=== PATIENT | female | born 1935 | race Caucasian/White ===

== ENCOUNTER 2017-11-05 19:14 | Emergency (ER) | payer MEDICARE, OTHER ==
--- NOTE | 2017-11-05 19:35 | EDM.PDOC ---
ED HPI GENERAL MEDICAL PROBLEM - General Chief Complaint: General Stated Complaint: nausea, vomiting, pain and burning with urination Time Seen by Provider: 11/05/17 19:25 Source of Information: Reports: Patient, Old Records ([facility] chart/EMR) History Limitations: Reports: No Limitations - History of Present Illness INITIAL COMMENTS - FREE TEXT/NARRATIVE: Patient drove herself to the emergency room via private automobile for evaluation of progressive intermittent 7/10 nonspecific generalized abdominal pain and bloating associated with mild diarrhea, nausea, and recurrent emesis with symptoms starting at about 13:00 hours on 11/03. She has measured her temperature with no history of fever or recent use of antipyretic medications or the patient is not taking any medications for her symptoms to this point. She did have 3 loose stools today with 3 episodes of emesis this morning. She denies any known exposure to infection, food poisoning, etc. The patient has been since some increased urinary frequency and dysuria since early this morning with no gross hematuria, colic, etc.. No recent history of heartburn, melena, gross hematochezia, or any food intolerance, including fatty foods, etc. , although she has had some moderate anorexia during the last 24 hours. Symptoms have progressed since about exceeding 1600 hours today. The patient denies any chest pain/pressure, heart flutter, dizziness, orthostasis, orthopnea , diaphoresis, paresthesias, recent decreased exercise tolerance, or any other anginal-type symptoms. The patient also denies any recent cough, wheezing, dyspnea, etc.. She has received an influenza booster this season. She shouldn't did not take most of her medications this morning, however she did take her blood pressure medication this morning, which was apparently increased yesterday secondary to recently elevated blood pressures. No history of recent headaches, visual changes, diplopia, change in mental status, or other change in neurological status. Onset: Gradual Onset Date: 11/03/17 Onset Time: 13:00 Duration: Getting Worse, Intermittent Location: Reports: Abdomen, Generalized. Denies: Head, Face, Neck, Chest, Back , Upper Extremity, Left, Upper Extremity, Right, Radiates to Quality: Reports: Other (As above) Severity: Moderate Improves with: Reports: None Worsens with: Reports: None Context: Reports: Other (As above) Associated Symptoms: Reports: Loss of Appetite, Nausea/Vomiting. Denies: Confusion, Chest Pain, Cough, Diaphoresis, Fever/Chills, Headaches, Malaise, Rash, Seizure, Shortness of Breath, Syncope, Weakness Treatments SUPPLY TECHNICIAN: Reports: Other (see below) (None) abdomen Pain Score (Numeric/FACES): 7 - Related Data Allergies Allergy/AdvReac Type Severity Reaction Status Date / Time No Known Allergies Allergy Verified 11/05/17 19:28 Home Meds: Home Meds Aspirin [Children's Aspirin] 81 mg PO BEDTIME 09/22/14 [History] Lutein/Minerals/Vit A,C & E [Ocuvite] 1 tab PO DAILY 09/22/14 [History] Simvastatin [Zocor] 20 mg PO BEDTIME 09/22/14 [History] Cholecalciferol (Vitamin D3) [Vitamin D3] 4,000 unit PO DAILY 10/02/15 [History] Magnesium Oxide [Magnesium] 400 mg PO DAILY 10/02/15 [History] Multivitamin [Multivitamins] 1 each PO DAILY 10/02/15 [History] Ubidecarenone [Co Q-10] 400 mg PO DAILY 10/02/15 [History] Bisoprolol Fumarate/HCTZ [Ziac 10-6.25 MG] 1 tab PO DAILY 11/05/17 [History] Calcium Carbonate [Calcium] 1,000 mg PO DAILY 11/05/17 [History] Citalopram [Celexa] 10 mg PO BEDTIME 11/05/17 [History] Sulfamethoxazole/Trimethoprim [Bactrim Ds Tablet] 1 each PO BID #20 tablet 11/05 [Rx] Past Medical History HEENT History: Reports: Allergic Rhinitis, Cataract, Impaired Vision, Other ( See Below). 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 Denies: Afib, Aneurysm, Arrhythmia, Blood Clots/VTE/DVT, CAD, Heart Failure, Heart Murmur, ID, PVD, Syncope Other Cardiovascular History: Coronary arteriosclerosis by x-rays with no known history of coronary artery disease or ID Respiratory History: Reports: COPD, Other (See Below). Denies: Asthma, Intubation, Previous, PE, Pneumothorax, Pulmonary Fibrosis, Sleep Apnea Other Respiratory History: COPD by chest x-ray Gastrointestinal History: Reports: Cholelithiasis, Colon Polyp, Gastritis, GERD , Hemorrhoids, Helicobacter Pylori, Other (See Below). Denies: Celiac Disease, Chronic Constipation, Chronic Diarrhea, Fecal Incontinence, GI Bleed, Hepatitis , Hiatal Hernia, Inflammatory Bowel Disease, Irritable Bowel Syndrome, Jaundice , Pancreatitis, PUD Other Gastrointestinal History: Tubulovillous rectal polyp excised by colonoscopy on 09/23/14: Previous H. pylori infection treated in about 1997 Genitourinary History: Reports: Urinary Incontinence, UTI, Recurrent, Other ( See Below). Denies: Acute Renal Failure, Chronic Renal Insuffiency, Renal Calculus, STD Other Genitourinary History: Atrophic vaginitis as below THREAD DRAWER History: Reports: . Denies: Dysfunctional Uterine Bleeding, Endometriosis, Fibroids, Spontaneous : 3 Para: 3 (Full term without complications during pregnancies or deliveries) LMP (Approximate): Menopausal (At about age 52) Other OB/BYN History: Uterine prolapse with pessary therapy and atrophic vaginitis with previous hormone replacement therapy Musculoskeletal History: Reports: Arthritis, Back Pain, Chronic, Neck Pain, Chronic, Osteoarthritis, Osteoporosis, Other (See Below). Denies: Fracture, Gout, RA, SLE Other Musculoskeletal History: Mild scoliosis Neurological History: Reports: None. Denies: Cerebral Aneurysms, Concussion, CVA, Headaches, Chronic, Head Trauma, Migraines, MS, Parkinson's, Seizure, TIA Psychiatric History: Reports: Anxiety, Depression. Denies: Abuse, Victim of, ADD, ADHD, Addiction, Psych Hospitalization(s), PTSD, Suicide Attempt, Suicidal Ideation Endocrine/Metabolic History: Reports: Osteopenia, Osteoporosis, Other (See Below ). Denies: Diabetes, Type I, Diabetes, Type II, Hypothyroidism, IDDM, Vitamin D Deficiency Other Endocrine/Metabolic History: Hypomagnesemia Hematologic History: Reports: None. Denies: Anemia, B12 Deficiency, Blood Transfusion(s), Iron Deficiency Immunologic History: Reports: None. Denies: AIDS, HIV, SLE Oncologic (Cancer) History: Reports: None. Denies: Basal Cell Carcinoma, Breast , Cervix, Colon, Hodgkin's Lymphoma, Leukemia, Lymphoma, Malignant Melanoma, Non -Hodgkin's Lymphoma, Squamous Cell Carcinoma, Uterine Dermatologic History: Reports: Other (See Below). Denies: Eczema, Psoriasis Other Dermatologic History: Pre cancerous lesions removed to back, shoulder and face. - Infectious Disease History Infectious Disease History: Reports: Chicken Pox, Helicobacter Pylori, Measles. Denies: C-Difficile, Meningitis, Mononucleosis, MRSA, Mumps, Pertussis ( Whooping Cough), Rheumatic Fever, Rubella, Scarlet Fever, Shingles, VRE - Past Surgical History Head Surgeries/Procedures: Reports: None HEENT Surgical History: Reports: Adenoidectomy, Cataract Surgery, Eye Surgery, Naso-Sinus Surgery, Oral Surgery, Tonsillectomy, Other (See Below). Denies: Laser Surgery, LASIK, Myringotomy w Tube(s) Other HEENT Surgeries/Procedures: Multiple tooth extractions with subsequent dental implants in 2008; tonsillectomy and adenoidectomy at age 8; bilateral nasolacrimal duct surgery/stent placement in the early ; bilateral cataract surgery in 2014 Cardiovascular Surgical History: Reports: None. Denies: Varicose, Vascular Surgery Respiratory Surgical History: Reports: None. Denies: Thoracentesis GI Surgical History: Reports: Colonoscopy, EGD, Polypectomy, Other (See Below). Denies: Appendectomy, Cholecystectomy, Hernia, Abdominal, Hernia, Inguinal, Hernia Repair/Other Other GI Surgeries/Procedures: Last colonoscopy with polyp excision on 09/23/14 with EGD conducted at that time Female Surgical History: Reports: None. Denies: Section, D&C, Hysterectomy, Tubal Ligation Endocrine Surgical History: Reports: None. Denies: Thyroid Biopsy Neurological Surgical History: Reports: None. Denies: C-Spine, Discectomy, Intracranial, Laminectomy, Lumbar Spine, Spinal Fusion, Vertebroplasty Musculoskeletal Surgical History: Reports: None. Denies: Arthroscopic Procedure , Carpal Tunnel, Ganglion Cyst, Joint Replacement, ORIF, Shoulder Surgery Oncologic Surgical History: Reports: None. Denies: Biopsy of Breast Dermatological Surgical History: Reports: Skin Biopsy, Other (See Below) Other Dermatological Surgeries/Procedures: Excision of precancerous skin lesions as above - Past Imaging History Past Imaging History: Reports: DEXA Scan (Last DEXA scan on 04/19/17 with previous evaluation on 11/06/12), Mammogram (Last mammogram on 09/26/16), Ultrasound (Abdominal ultrasound on 08/19/08) Social & Family History - Family History Cardiac: Reports: CAD, Heart Failure, ID, Other (See Below) Other Cardiac Family History: Mother with fatal CHF at age 83 with mother also having an ID in her 70s Neurological: Reports: CVA, TIA, Other (See Below) Other Neurological Family History: Mother with CVA at age 81 with father having TIAs Oncologic: Reports: Colon, Metastatic, Other (See Below) Other Oncologic Family History: Sister with metastatic colon cancer at age 78; father with fatal prostate cancer at age 79 - Tobacco Use Smoking Status *Q: Never Smoker Used Tobacco, but Quit: No Smoking Cessation Information Provided To Patient: No Second Hand Smoke Exposure: No Second Hand Smoke Education Provided: No - Caffeine Use Caffeine Use: Reports: Coffee (One cup per day), Tea (2 cups per day). Denies: Energy Drinks, Soda - Alcohol Use Alcohol Use History: Yes Days Per Week of Alcohol Use: 2 (No previous DWIs, problems with alcohol abuse, etc.) Number of Drinks Per Day: 1 (Usually wine) Total Drinks Per Week: 2 Alcohol Use in Last Twelve Months: Yes Alcohol Use Frequency: Socially - Recreational Drug Use Recreational Drug Use: No Drug Use in Last 12 Months: No Recreational Drug Type: Denies: Amphetamines (Speed), Fentanyl, Heroin, Inhalants (Glues, Solvents, Aerosols), LSD (Acid), Marijuana/Hashish, Methamphetamine, Morphine - Living Situation & Occupation Living situation: Reports: (December 2015, 3 children), Alone, with Family 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 Denies: Fever, Chills, Weakness, Fatigue, Night Sweats, Diaphoresis, Weight Loss, Weight Gain HEENT: Reports: Glasses. Denies: Dental Pain, Ear Discharge, Ear Pain, Hearing Loss, Nose Pain, Rhinitis, Sinus Problem, Throat Pain, Throat Swelling, Vertigo , Vision Change Respiratory: Reports: No Symptoms. Denies: Shortness of Breath, Wheezing, Pleuritic Chest Pain, Cough, Sputum Cardiovascular: Reports: Blood Pressure Problem. Denies: Chest Pain, Claudication, Dyspnea on Exertion, Edema, Lightheadedness, Orthopnea, Palpitations, PND, Syncope Endocrine: Reports: No Symptoms. Denies: Fatigue GI/Abdominal: Reports: Abdominal Pain, Anorexia, Diarrhea, Decreased Appetite, Flatus, Nausea, Vomiting. Denies: Black Stool, Bloody Stool, Constipation, Difficulty Swallowing, Distension, Hematochezia, Melena, Mucous in Stool, Stool Incontinence : Reports: Dysuria, Frequency, Incontinence, Urgency. Denies: Flank Pain, Hematuria, Pain, Urinary Retention Musculoskeletal: Reports: No Symptoms. Denies: Neck Pain, Shoulder Pain, Arm Pain, Back Pain, Leg Pain Skin: Reports: No Symptoms. Denies: Diaphoresis, Pruritis, Wound Neurological: Reports: No Symptoms. Denies: Confusion, Dizziness, Headache, Numbness, Paresthesia, Syncope, Tingling, Weakness Psychiatric: Reports: Other (Some increased stress recently secondary to her sister's illness). Denies: Agitation, Anxiety, Confusion, Depression, Hallucinations Hematologic/Lymphatic: Reports: No Symptoms Immunologic: Reports: No Symptoms ED EXAM, GENERAL - Physical Exam Exam: See Below Exam Limited By: No Limitations General Appearance: Alert, WD/WN, No Apparent Distress, Anxious (Mild) Eye Exam: Bilateral Eye: EOMI, Normal Inspection (No nystagmus, patient wearing glasses), PERRL Ears: Normal External Exam, Normal Canal, Hearing Grossly Normal, Normal TMs Nose: Normal Inspection, Normal Mucosa, No Blood Throat/Mouth: Normal Lips, Normal Teeth, Normal Gums, Normal Voice, No Airway Compromise. No: Normal Oropharynx (Mild dry oral mucosa), Dysphagia, Perioral Cyanosis Head: Atraumatic, Normocephalic. No: Facial Swelling, Facial Tenderness, Sinus Tenderness Neck: Normal Inspection, Supple, Non-Tender, Full Range of Motion, Carotid Bruit (Mild bilateral carotid bruits). No: Lymphadenopathy (L), Lymphadenopathy (R), Thyromegaly Respiratory/Chest: No Respiratory Distress, Lungs Clear, Normal Breath Sounds, No Accessory Muscle Use, Chest Non-Tender. No: Pleural Rub, Retractions Cardiovascular: Normal Peripheral Pulses, Regular Rate, Rhythm, No Edema, No Gallop, No JVD, No Murmur, No Rub. No: Gallop/S3, Gallop/S4, Friction Rub Peripheral Pulses: 2+: Radial (L), Radial (R), Dorsalis Pedis (L), Dorsalis Pedis (R) GI/Abdominal: Normal Bowel Sounds, Soft, Non-Tender, No Organomegaly, No Distention, No Abnormal Bruit, No Mass, Pelvis Stable. No: Guarding (Female) Exam: Deferred Rectal (Female) Exam: Deferred Back Exam: Normal Inspection, Full Range of Motion. No: CVA Tenderness (L), CVA Tenderness (R), Muscle Spasm Extremities: Normal Inspection, Normal Range of Motion, Non-Tender, No Pedal Edema, Normal Capillary Refill. No: Yesenia's Sign Neurological: Alert, Oriented, CN II-XII Intact, Normal Cognition, Normal Gait, Normal Reflexes (Negative Babinski's), No Motor/Sensory Deficits Psychiatric: Anxious (Mild), Depressed Mood (Borderline with adequate eye contact) Skin Exam: Warm, Dry, Intact, Normal Color, No Rash, Other (Turgor good). No: Diaphoretic, Ecchymosis, Jaundice, Pallor, Petechiae, Wound/Incision Lymphatic: No Adenopathy Course - Vital Signs Last Recorded V/S: Last Vital Signs Temp 36.6 C 11/05/17 19:20 Pulse 67 11/05/17 21:35 Resp 18 11/05/17 19:20 BP 192/70 H 11/05/17 21:35 Pulse Ox 99 11/05/17 19:20 Vital Signs - 24 hr 11/05/17 11/05/17 19:20 21:35 Temperature [ 36.6 C Temporal] Pulse, 79 67 Peripheral [ Right Pulse Oximetry] Respiratory 18 Rate Blood Pressure 193/94 H 192/70 H [Left Upper Arm ] O2 Sat by Pulse 99 Oximetry - Orders/Labs/Meds Orders: Active Orders 24 hr Category Date Time Status Peripheral IV Care [RC] . DIRECTED Care 11/05/17 19:36 Active Nothing Per Oral Diet [DIET] Diet 11/05/17 Breakfast Active Abdomen Series w Chest 1V [CR] Stat Exams 11/05/17 19:36 Taken CULTURE BLOOD [BC] Stat Lab 11/05/17 19:48 Received CULTURE BLOOD [BC] Stat Lab 11/05/17 20:00 Received CULTURE STREP A CONFIRMATION [RM] Stat Lab 11/05/17 19:40 Results CULTURE URINE [RM] Stat Lab 11/05/17 19:36 Received H PYLORI STOOL ANTIGEN [MREF] Urgent Lab 11/05/17 19:36 Uncollected STREP SCRN A RAPID W CULT CONF [RM] Stat Lab 11/05/17 19:40 Results Sodium Chloride 0.9% [Saline Flush] Med 11/05/17 19:36 Active 10 ml FLUSH ASDIRECTED PRN Blood Culture x2 Reflex Set [OM.PC] Urgent Oth 11/05/17 19:36 Ordered Obtain Past Medical Record [OM.PC] Urgent Oth 11/05/17 19:36 Active Peripheral IV Insertion Adult [OM.PC] Stat Oth 11/05/17 19:36 Ordered Resuscitation Status Stat Resus Stat 11/05/17 19:36 Ordered Medication Orders Sodium Chloride (Saline Flush) 10 ml FLUSH ASDIRECTED PRN PRN Reason: Keep Vein Open Last Admin: 11/05/17 20:25 Dose: 10 ml Admin: 11/05/17 20:16 Dose: 10 ml Admin: 11/05/17 20:09 Dose: 10 ml Labs: Laboratory Tests 11/05/17 11/05/17 11/05/17 Range/Units 19:36 19:48 19:48 WBC 9.3 (4.0-10.2) K/uL RBC 4.25 (3.77-5.09) M/uL Hgb 13.0 (11.7-15.5) g/dL Hct 38.0 (34.0-46.0) % MCV 89.4 (84.0-98.0) fL MCH 30.6 (28.2-33.3) pg MCHC 34.2 (31.7-36.0) g/dL RDW 12.6 (11.2-14.1) % Plt Count 281 (150-350) K/uL Neut % (Auto) 73.0 (45.0-80.0) % Lymph % (Auto) 16.3 (10.0-50.0) % [place] % (Auto) 9.1 (2.0-14.0) % Eos % (Auto) 1.3 (0.0-5.0) % Baso % (Auto) 0.3 (0.0-2.0) % Neut # (Auto) 6.76 (1.40-7.00) K/uL Lymph # (Auto) 1.51 (0.50-3.50) K/uL [place] # (Auto) 0.84 (0.00-1.00) K/uL Eos # (Auto) 0.12 (0.00-0.50) K/uL Baso # (Auto) 0.03 (0.00-0.20) K/uL Sodium (136-145) mmol/L Potassium (3.5-5.1) mmol/L Chloride (98-107) mmol/L Carbon Dioxide (21.0-32.0) mmol/L BUN (7-18) mg/dL Creatinine (0.51-1.17) mg/dL Est Cr Clr Drug Dosing mL/min Estimated GFR (MDRD) mL/min Glucose (74-106) mg/dL Lactic Acid (0.4-2.0) mmol/L Uric Acid (2.6-7.2) mg/dL Calcium (8.5-10.1) mg/dL Magnesium (1.8-2.4) mg/dL Total Bilirubin (0.2-1.0) mg/dL AST (15-37) U/L ALT (12-78) U/L Alkaline Phosphatase (46-116) IU/L Total Protein (6.4-8.2) g/dL Albumin (3.4-5.0) g/dL Amylase 67 (25-115) U/L Lipase (73-393) U/L Specimen Type Urincc Urine Color Yellow Urine Appearance Slightly cloudy Urine pH 5.5 (5.0-9.0) Ur Specific [place] >= 1.030 (1.005-1.030) Urine Protein 100 H (NEGATIVE) mg/dL Urine Glucose (UA) Negative (NEGATIVE) mg/dL Urine Ketones Trace H (NEGATIVE) mg/dL Urine Occult Blood Large H (NEGATIVE) Urine Nitrite Negative (NEGATIVE) Urine Bilirubin Negative (NEGATIVE) Urine Urobilinogen 0.2 (0.2-1.0) E.U./dL Ur Leukocyte Esterase Small H (NEGATIVE) Urine RBC 40-50 H /HPF Urine WBC 20-30 H /HPF Ur Epithelial Cells Few /LPF Urine Bacteria Moderate H (NONE TO FEW) /HPF 11/05/17 11/05/17 Range/Units 19:48 19:48 WBC (4.0-10.2) K/uL RBC (3.77-5.09) M/uL Hgb (11.7-15.5) g/dL Hct (34.0-46.0) % MCV (84.0-98.0) fL MCH (28.2-33.3) pg MCHC (31.7-36.0) g/dL RDW (11.2-14.1) % Plt Count (150-350) K/uL Neut % (Auto) (45.0-80.0) % Lymph % (Auto) (10.0-50.0) % [place] % (Auto) (2.0-14.0) % Eos % (Auto) (0.0-5.0) % Baso % (Auto) (0.0-2.0) % Neut # (Auto) (1.40-7.00) K/uL Lymph # (Auto) (0.50-3.50) K/uL [place] # (Auto) (0.00-1.00) K/uL Eos # (Auto) (0.00-0.50) K/uL Baso # (Auto) (0.00-0.20) K/uL Sodium 130 L (136-145) mmol/L Potassium 3.7 (3.5-5.1) mmol/L Chloride 95 L (98-107) mmol/L Carbon Dioxide 25.8 (21.0-32.0) mmol/L BUN 11 (7-18) mg/dL Creatinine 0.71 (0.51-1.17) mg/dL Est Cr Clr Drug Dosing 54.57 mL/min Estimated GFR (MDRD) > 60 mL/min Glucose 117 H (74-106) mg/dL Lactic Acid 1.1 (0.4-2.0) mmol/L Uric Acid 2.2 L (2.6-7.2) mg/dL Calcium 9.1 (8.5-10.1) mg/dL Magnesium 2.1 (1.8-2.4) mg/dL Total Bilirubin 0.4 (0.2-1.0) mg/dL AST 21 (15-37) U/L ALT 24 (12-78) U/L Alkaline Phosphatase 61 (46-116) IU/L Total Protein 8.1 (6.4-8.2) g/dL Albumin 4.2 (3.4-5.0) g/dL Amylase (25-115) U/L Lipase 375 (73-393) U/L Specimen Type Urine Color Urine Appearance Urine pH (5.0-9.0) Ur Specific [place] (1.005-1.030) Urine Protein (NEGATIVE) mg/dL Urine Glucose (UA) (NEGATIVE) mg/dL Urine Ketones (NEGATIVE) mg/dL Urine Occult Blood (NEGATIVE) Urine Nitrite (NEGATIVE) Urine Bilirubin (NEGATIVE) Urine Urobilinogen (0.2-1.0) E.U./dL Ur Leukocyte Esterase (NEGATIVE) Urine RBC /HPF Urine WBC /HPF Ur Epithelial Cells /LPF Urine Bacteria (NONE TO FEW) /HPF Urine culture set up for culture and sensitivity Blood cultures 2 collected Microbiology 11/05/17 19:40 Group A Streptococcus Rapid Screen - Final Throat NEGATIVE STREP A SCREEN 11/05/17 19:30 Influenza Type A Antigen Screen - Final Nasopharyngeal Swab - Nare, Left NEGATIVE INFLUENZA A VIRUS AG Influenza Type B Antigen Screen - Final NEGATIVE INFLUENZA B VIRUS AG Meds: Medications Generic Name Dose Route Start Last Admin Trade Name Freq PRN Reason Stop Dose Admin Sodium Chloride 10 ml 11/05/17 19:36 11/05/17 20:25 Saline Flush FLUSH 10 ml ASDIRECTED PRN Administration Keep Vein Open Discontinued Medications Generic Name Dose Route Start Last Admin Trade Name Freq PRN Reason Stop Dose Admin Famotidine 40 mg 11/05/17 19:36 11/05/17 20:15 Pepcid IVPUSH 11/05/17 19:37 40 mg ONETIME ONE Administration Lactated Ringer's 1,000 mls @ 999 mls/hr 11/05/17 19:36 11/05/17 20:21 Ringers, Lactated IV 11/05/17 20:36 999 mls/hr .BOLUS ONE Administration Ondansetron HCl 4 mg 11/05/17 19:36 11/05/17 20:05 Zofran IVPUSH 11/05/17 19:37 4 mg ONETIME ONE Administration Pantoprazole Sodium 40 mg 11/05/17 19:36 11/05/17 20:09 Protonix Iv IVPUSH 11/05/17 19:37 40 mg ONETIME ONE Administration Trimethoprim/Sulfamethoxazole 1 tab 11/05/17 20:26 11/05/17 20:35 Septra Ds PO 11/05/17 20:27 1 tab ONETIME ONE Administration - Radiology Interpretation Free Text/Narrative:: Acute abdominal x-rays shows evidence of moderate COPD changes without cardiomegaly, CHF, pulmonary infiltrates, pneumothorax, free air, ileus, or obstruction. Mild prominence of the proximal aortic arch and aortic valve calcification. Moderate osteoarthritic changes including mild scoliosis in the lumbar spine. Mildly increased diffuse nonspecific bowel gaseous pattern with only very occasional fluid levels with moderate stool noted Departure - Departure Time of Disposition: 22:10 Disposition: Home, Self-Care 01 Condition: Good Clinical Impression: Dehydration, Peptic reflux disease, Mixed anxiety depressive disorder, Hyponatremia Hypertension Qualifiers: Hypertension type: essential hypertension Qualified Code(s): I10 - Essential ( primary) hypertension Osteoarthritis Qualifiers: Osteoarthritis location: multiple joints Osteoarthritis type: primary Qualified Code(s): M15.0 - Primary generalized (osteo)arthritis Hyperlipidemia Qualifiers: Hyperlipidemia type: unspecified Qualified Code(s): E78.5 - Hyperlipidemia, unspecified UTI (urinary tract infection) Qualifiers: Urinary tract infection type: site unspecified Hematuria presence: without hematuria Qualified Code(s): N39.0 - Urinary tract infection, site not specified Abdominal pain Qualifiers: Abdominal location: generalized Qualified Code(s): R10.84 - Generalized abdominal pain - Discharge Information Prescriptions: Sulfamethoxazole/Trimethoprim [Bactrim Ds Tablet] 1 each PO BID #20 tablet Instructions: Ondansetron injection, Pantoprazole injection, Dehydration, Adult , [id number], Urinary Tract Infection, Adult, Famotidine injection, Sulfamethoxazole; Trimethoprim, [id number] tablets, Urinary Tract Infection, Adult , [id number], Viral Gastroenteritis, Adult, [id number] Referrals: Jennifer Kc NP [Primary Care Provider] - Forms: ED Department Discharge Additional Instructions: 1. Followup with your regular provider in 10-14 days as directed or reevaluation and recommended basic metabolic panel and urine tests as below. 2. Urine tests should be repeated at follow up visit with possible repeat urine culture,etc. at that time. Today's urine culture is pending with results in about 2-3 days. We will call you, if we need to change your therapy. 3. Encourage oral fluids, including daily cranberry use, etc.as directed. 4. [place] diet including encouragement of oral fluids such as sports drinks, etc. for 24-48 hours as directed. Advance to previous low-fat, low-cholesterol , diverticulosis diet as tolerated thereafter. 5. Tylenol 650 mg by mouth every 4 hours and/or OTC ibuprofen 2-3 tabs by mouth every 6 hours with food as directed./needed. 6. Continue to observe your blood pressures closely through your regular provider, including during already scheduled blood pressure follow-up and at the above follow-up visit - Problem List & Annotations (1) Abdominal pain SNOMED Code(s): 41096356 Code(s): R10.9 - UNSPECIFIED ABDOMINAL PAIN Status: Acute Priority: High Current Visit: Yes Onset Date: ~11/03/17 Annotation/Comment:: Likely secondary to viral gastroenteritis with overall good results medical therapy in the emergency room. Symptomatic relief as per discharge instructions. Qualifiers: Abdominal location: generalized Qualified Code(s): R10.84 - Generalized abdominal pain (2) UTI (urinary tract infection) SNOMED Code(s): 18126030 Code(s): N39.0 - URINARY TRACT INFECTION, SITE NOT SPECIFIED Status: Acute Priority: High Current Visit: Yes Onset Date: 10/02/15 Annotation/ Comment:: Initial dose of Bactrim DS given in the emergency room. Urine specimen set up for culture and sensitivity. Close followup by regular provider as per discharge instructions Qualifiers: Urinary tract infection type: site unspecified Hematuria presence: without hematuria Qualified Code(s): N39.0 - Urinary tract infection, site not specified (3) Dehydration SNOMED Code(s): 76567901 Code(s): E86.0 - DEHYDRATION Status: Acute Priority: High Current Visit : Yes Onset Date: 11/05/17 Annotation/Comment:: 1 L IV bolus of lactated Ringer's given in the emergency room. Oral fluids to be encouraged as per discharge instructions (4) Hypertension SNOMED Code(s): 89389377 Code(s): I10 - ESSENTIAL (PRIMARY) HYPERTENSION Status: Chronic Priority : Medium Current Visit: Yes Annotation/Comment:: Recently elevated by patient history with recent medication adjustment as above. Close follow-up by her regular provider as per discharge instructions. Qualifiers: Hypertension type: essential hypertension Qualified Code(s): I10 - Essential (primary) hypertension (5) Osteoarthritis SNOMED Code(s): 904408601 Code(s): M19.90 - UNSPECIFIED OSTEOARTHRITIS, UNSPECIFIED SITE Status: Chronic Priority: Medium Current Visit: Yes Annotation/Comment:: Stable by patient history Qualifiers: Osteoarthritis location: multiple joints Osteoarthritis type: primary Qualified Code(s): M15.0 - Primary generalized (osteo)arthritis (6) Hyperlipidemia SNOMED Code(s): 19284103 Code(s): E78.5 - HYPERLIPIDEMIA, UNSPECIFIED Status: Chronic Priority: Medium Current Visit: Yes Annotation/Comment:: Stable by patient history and currently under therapy Qualifiers: Hyperlipidemia type: unspecified Qualified Code(s): E78.5 - Hyperlipidemia , unspecified (7) Peptic reflux disease SNOMED Code(s): 24740449 Code(s): K21.9 - GASTRO-ESOPHAGEAL REFLUX DISEASE WITHOUT ESOPHAGITIS Status: Chronic Priority: Medium Current Visit: Yes Annotation/Comment:: Previous history of H. pylori infection and distant treatment. High-dose IV Pepcid and IV Protonix given as GI prophylaxis. Consider stool specimen for H. pylori antigen depending on her clinical course (8) Mixed anxiety depressive disorder SNOMED Code(s): 824622644 Code(s): F41.8 - OTHER SPECIFIED ANXIETY DISORDERS Status: Chronic Priority: Medium Current Visit: Yes Annotation/Comment:: Overall stable by history, although some increased stressors currently secondary to her sister's recent metastatic colon cancer as above. Emotional support provided. Continue to observe closely by her regular providers with continuation of current medical therapy for now (9) Hyponatremia SNOMED Code(s): 59753800 Code(s): E87.1 - HYPO-OSMOLALITY AND HYPONATREMIA Status: Acute Priority : Medium Current Visit: Yes Onset Date: 11/05/17 Annotation/Comment:: IV fluids as above. Repeat BMP at follow-up visit. Consider BNP, if hyponatremia persists - Problem List Review Problem List Initiated/Reviewed/Updated: Yes - My Orders Last 24 Hours: My Active Orders 11/05/17 19:36 Peripheral IV Care [RC] . DIRECTED Abdomen Series w Chest 1V [CR] Stat CULTURE URINE [RM] Stat H PYLORI STOOL ANTIGEN [MREF] Urgent Sodium Chloride 0.9% [Saline Flush] 10 ml FLUSH ASDIRECTED PRN Blood Culture x2 Reflex Set [OM.PC] Urgent Obtain Past Medical Record [OM.PC] Urgent Peripheral IV Insertion Adult [OM.PC] Stat Resuscitation Status Stat 11/05/17 19:40 CULTURE STREP A CONFIRMATION [RM] Stat STREP SCRN A RAPID W CULT CONF [RM] Stat 11/05/17 19:48 CULTURE BLOOD [BC] Stat 11/05/17 20:00 CULTURE BLOOD [BC] Stat 11/05/17 Breakfast Nothing Per Oral Diet [DIET] - Assessment/Plan Last 24 Hours: My Active Orders 11/05/17 19:36 Peripheral IV Care [RC] . DIRECTED Abdomen Series w Chest 1V [CR] Stat CULTURE URINE [RM] Stat H PYLORI STOOL ANTIGEN [MREF] Urgent Sodium Chloride 0.9% [Saline Flush] 10 ml FLUSH ASDIRECTED PRN Blood Culture x2 Reflex Set [OM.PC] Urgent Obtain Past Medical Record [OM.PC] Urgent Peripheral IV Insertion Adult [OM.PC] Stat Resuscitation Status Stat 11/05/17 19:40 CULTURE STREP A CONFIRMATION [RM] Stat STREP SCRN A RAPID W CULT CONF [RM] Stat 11/05/17 19:48 CULTURE BLOOD [BC] Stat 11/05/17 20:00 CULTURE BLOOD [BC] Stat 11/05/17 Breakfast Nothing Per Oral Diet [DIET] Assessment:: As above Plan: As above. Extensive precautions were given to the patient, who is in agreement with the treatment plan. See Patient Instructions for further treatment and plan.
[2017-11-05] MEDS ORDERED: Lactated Ringers 1,000 ML IV ONE (19:36)
[2017-11-05] MEDS ORDERED: Ondansetron 4 MG/2 ML SDV IVPUSH ONE (19:36)
[2017-11-05] MEDS ORDERED: Pantoprazole 40 MG Vial IVPUSH ONE (19:36)
[2017-11-05] MEDS ORDERED: Famotidine 20 MG/2 ML SDV IVPUSH ONE (19:36)
[2017-11-05] MEDS: Sodium Chloride 0.9% 10 ML Syringe FLUSH PRN ×3 (20:09→20:25)
[2017-11-05 20:19] LABS: CHLORIDE,CL 95 mmol/L (98-107); SODIUM,NA 130 mmol/L (136-145)
[2017-11-05] MEDS ORDERED: Sulfamethoxazole/Trimethoprim 800-160 MG Tab PO ONE (20:26)
[2017-11-05 21:37] VITALS: BP 192/70
== END 2017-11-05 22:10 | disposition home or self-care (01) ==
LOC: LL.ED 19:14
DX: E86.0 Dehydration (principal); E87.1 Hypo-osmolality and hyponatremia; K21.9 Gastro-esophageal reflux disease without esophagitis; N39.0 Urinary tract infection, site not specified; F41.8 Other specified anxiety disorders; I10 Essential (primary) hypertension; M15.0 Primary generalized (osteo)arthritis; E78.5 Hyperlipidemia, unspecified; Z79.82 Long term (current) use of aspirin; Z79.899 Other long term (current) drug therapy
CPT/HCPCS: 36415; 74022; 80053; 81001; 82150; 83605; 83690; 83735; 84550; 85025; 87040; 87081; 87086; 87088; 87430; 87804; 96361; 96374; 96375; 99284; A9270; C9113; J2405; J7050; J7120; S0028